=== PATIENT | male | born 1950 | race Caucasian/White ===

== ENCOUNTER 2017-02-07 19:14 | Inpatient (IN) | payer MEDICARE ==
[~2017-02-07] VITALS: Ht 165.1 cm; Wt 62.1 kg
[~2017-02-07 19:14] MED LIST: NORCO 5/325 MG1 TAB PO; PAXIL20 MG PO
[2017-02-07 19:19] VITALS: BP 113/76
--- NOTE | 2017-02-07 19:40 | NUR ---
BIBA TO ER BED 4
[2017-02-07] MEDS ORDERED: ONDANSETRON 4 MG ODT PO ONE (20:05)
--- NOTE | 2017-02-07 20:18 | NUR ---
66Y/F PT. BIBA TO ED WITH C/O NAUSEA, VOMITING, DIARRHEA, BODYACHES,CHILLS, FOR 3 DAYS. HX. DEPRESSION. AAO X4, AMBULATORY WITH STEADY GAIT. RESPIRATIONS ROOM AIR, EVEN AND UNLABORED. SKIN WARM AND DRY. ACTIVE BS X4, ABDOMEN SOFT NON TENDER, C/O PAIN 5/10. VSS, ER MD MADE AWARE OF PT. STATUS.
--- NOTE | 2017-02-07 20:30 | NUR ---
Patient being evaluated by physician at bedside.
[2017-02-07] MEDS ORDERED: NACL 0.9% 1,000 ML IV ONE (21:10)
--- NOTE | 2017-02-07 21:30 | NUR ---
Patient appears to be resting comfortably in bed. Vital Signs within normal limits. Respirations even and unlabored.
[2017-02-07] MEDS ORDERED: ONDANSETRON 4 MG/2 ML VIAL IVP ONE (21:40)
[2017-02-07] MEDS ORDERED: DESYREL50 MG PO (22:04)
--- NOTE | 2017-02-07 22:25 | NUR ---
Patient will be admitted to care of . Admited to TELE. Will go to room 112A. Belongings list completed. Report to COLBY NÚÑEZ.
[2017-02-07 22:56] VITALS: BP 148/98
[2017-02-07] MEDS ORDERED: DOCUSATE SODIUM 100 MG GELCAP PO PRN (23:00)
[2017-02-07] MEDS ORDERED: ACETAMINOPHEN 325 MG TAB PO PRN (23:00)
[2017-02-07] MEDS ORDERED: HYDROcodone/APAP 7.5/325 MG 1 TAB PO PRN (23:00)
--- NOTE | 2017-02-07 23:00 | NUR ---
RECEIVED REPORT FROM ED RN FOR CONTINUITY OF CARE. 66 Y.O. MALE BROUGHT TO UNIT WITH DX: ILEUS, PATIENT IS ALERT AND ORIENTED X4, DISCUSSED PLAN OF CARE WITH PATIENT, VERBALIZED UNDERSTANDING. ORIENTED PATIENT TO ROOM AND COLLECTED MRSA SWAB. INFORMED PATIENT OF NEED FOR URINE AND PLACED SAMPLE CUP AT BEDSIDE. SHIFT ASSESSMENT DONE, VITAL SIGNS TAKEN, STABLE AT THIS TIME. NO RESPIRATORY DISTRESS NOTED ON ROOM AIR. PATIENT DENIES PAIN AT THIS TIME. IV PATENT AND INFUSING FLUIDS WELL. SKIN INTACT. SAFETY PRECAUTIONS ENFORCED, CALL LIGHT WITHIN REACH, WILL CONTINUE TO MONITOR.
[2017-02-07] MEDS: NACL 0.9% 1,000 ML IV SCH (23:38)
[2017-02-07] MEDS: ONDANSETRON 4 MG/2 ML VIAL IM/IVP PRN (23:39)
--- NOTE | 2017-02-07 23:39 | NUR ---
PATIENT C/O NAUSEA, ADMINISTERED MEDICATION PER MD ORDER. DR. THOMAS IN TO SEE PATIENT, WILL FOLLOW OUT ORDERS GIVEN.
[2017-02-08] VITALS: BP 121/76
--- NOTE | 2017-02-08 00:30 | NUR ---
INSERTED NG TUBE 14 SINHALA TO RIGHT NARE, PATIENT TOLERATED WELL. PLACED PATIENT ON NPO. CALLED CT FOR CXR.
[2017-02-08] MEDS ORDERED: MAG SULF 2000 MG/WATER PREMIX 50 ML IV SCH (01:40)
--- NOTE | 2017-02-08 02:00 | NUR ---
PATIENT HAD EPISODE OF DIARRHEA, STATES "IT IS GETTING BETTER BUT STILL LIQUID", RETURNED TO BED AND MADE COMFORTABLE. CALL LIGHT WITHIN REACH, WILL CONTINUE TO MONITOR.
[2017-02-08 04:00] VITALS: BP 139/85
--- NOTE | 2017-02-08 04:07 | NUR ---
VITAL SIGNS STABLE, PATIENT RESTING IN BED, NEW IV LINE INSERTION TO LT FA FOR CT WITH CONTRAST. CALL LIGHT WITHIN REACH, WILL CONTINUE TO MONITOR.
--- NOTE | 2017-02-08 04:40 | NUR ---
AMY FROM CT BROUGHT CONTRAST TO ADMINISTER VIA NG TUBE. PATIENT TOLERATING WELL.
--- NOTE | 2017-02-08 06:50 | NUR ---
NG CONTRAST COMPLETED AND PATIENT LEFT TO CT VIA WHEELCHAIR IN STABLE CONDITION.
--- NOTE | 2017-02-08 07:20 | NUR ---
PATIENT RETURNED FROM CT IN STABLE CONDITION, ENDORSED PATIENT TO DAY RN FOR CONTINUITY OF CARE.
--- NOTE | 2017-02-08 07:21 | NUR ---
RECEIVED REPORT FROM ACID BLEACHER RN. PT AWAY AT CT AT THIS TIME.
--- NOTE | 2017-02-08 07:30 | NUR ---
PT BACK FROM CT. PATIENT AWAKE AND ALERT, NO SIGNS OF ACUTE DISTRESS. BOWEL SOUNDS ACTIVE IN ALL 4 QUADRANTS. BOWEL AND BLADDER CONTINENCE. SKIN INTACT. PATIENT DENIES PAIN AT THIS TIME. NG TUBE IN RIGHT NARES, NO ORDERS FOR SUCTION AT THIS TIME. AMBULATORY WITH BRP. RE-ORIENTED TO HOSPITAL AND TO UNIT, PATIENT VERBALIZES UNDERSTANDING. BED IN LOW POSITION WITH BILATERAL HALF SIDE RAILS UP, CALL LIGHT WITHIN REACH. WILL CONTINUE TO MONITOR. Addendum: 02/08/17 at 0938 by Any Valdes RN PT BACK FROM CT. PATIENT AWAKE AND ALERT, NO SIGNS OF ACUTE DISTRESS. BOWEL SOUNDS ACTIVE IN ALL 4 QUADRANTS. BOWEL AND BLADDER CONTINENCE. SKIN INTACT. PATIENT DENIES PAIN AT THIS TIME. NG TUBE IN RIGHT NARES, NO ORDERS FOR SUCTION AT THIS TIME. AMBULATORY WITH BRP. IV'S ARE PATENT AND ASYMPTOMATIC. RE-ORIENTED TO HOSPITAL AND TO UNIT, PATIENT VERBALIZES UNDERSTANDING. BED IN LOW POSITION WITH BILATERAL HALF SIDE RAILS UP, CALL LIGHT WITHIN REACH. WILL CONTINUE TO MONITOR.
[2017-02-08 08:00] VITALS: BP 129/80
[2017-02-08] MEDS: ONDANSETRON 4 MG/2 ML VIAL IM/IVP PRN (08:06)
--- NOTE | 2017-02-08 09:01 | NUR ---
PATIENT HAS BEEN SCREENED AND CATEGORIZED MODERATE NUTRITION RISK. PATIENT WILL BE SEEN WITHIN 3-5 DAYS OF ADMISSION. 02/10/17-02/12/[address]
--- NOTE | 2017-02-08 09:03 | NUR ---
RECEIVED NEW ORDER TO TRANSFER TO MED SURG, NOTED, WILL CARRY OUT.
[2017-02-08] MEDS: NACL 0.9% 1,000 ML IV SCH ×2 (10:54→18:41)
--- NOTE | 2017-02-08 11:15 | NUR ---
PT RESTING COMFORTABLY IN BED, NO SIGNS OF ACUTE DISTRESS. BED IN LOW POSITION WITH BILATERAL HALF SIDE RAILS UP, CALL LIGHT WITHIN REACH. WILL CONTINUE TO MONITOR.
--- NOTE | 2017-02-08 13:15 | NUR ---
PT RESTING IN BED, COMPLAINT OF NAUSEA, CLAIMING ZOFRAN IS NOT WORKING. WILL CHECK WITH DR COSTA FOR AN ALTERNATE ANTI NAUSEA MEDICATION.
--- NOTE | 2017-02-08 13:40 | NUR ---
RECEIVED NEW ORDERS FOR PHENERGAN PRN AND AM LABS FORM 02/09/17, NOTED, WILL CARRY OUT.
--- NOTE | 2017-02-08 13:48 | NUR ---
RECEIVED NEW ORDERS FOR C-DIFF COLLECTION, NOTED, WILL CARRY OUT.
[2017-02-08] MEDS ORDERED: MAG SULF 2000 MG/WATER PREMIX 50 ML IV ONE (13:55)
--- NOTE | 2017-02-08 13:57 | NUR ---
RECEIVED NEW ORDER FOR MAG RIDER FROM DR COSTA, NOTED, WILL CARRY OUT.
--- NOTE | 2017-02-08 14:58 | NUR ---
ORDER FOR MAG RIDER CANCELLED, ALREADY GIVEN LAST NIGHT PER DR COSTA. NOTED.
[2017-02-08] MEDS: PROMETHAZINE 25 MG/ML VIAL IM PRN ×2 (15:05→21:35)
--- NOTE | 2017-02-08 15:45 | NUR ---
COLLECTED STOOL SPECIMEN FOR C-DIFF AND TOOK TO LAB, WILL CONTINUE TO MONITOR.
[2017-02-08 16:00] VITALS: BP 134/83
--- NOTE | 2017-02-08 17:45 | NUR ---
PT RESTING IN BED, NO SIGNS OF ACUTE DISTRESS. BED IN LOW POSITION WITH BILATERAL HALF SIDE RAILS UP, CALL LIGHT WITHIN REACH. WILL CONTINUE TO MONITOR.
--- NOTE | 2017-02-08 19:15 | NUR ---
PT AWAKE AND ALERT, NO SIGNS OF ACUTE DISTRESS. ENDORSED TO LADLE MECHANIC NURSE FOR CONTINUITY OF CARE.
--- NOTE | 2017-02-08 19:30 | NUR ---
RECEIVED REPORT FROM AM NURSE. PT RESTING IN BED, AOX4, ABLE TO VERBALIZE NEEDS. PT DENIES CHEST PAIN, SOB OR S/S OF ACUTE DISTRESS. PT C/O NAUSEA, WILL MEDICATE ORDERED, EMESIS BAG AT BEDSIDE. NG TUBE NOTED TO RIGHT NARES, COFFEE GROUND FLUID NOTED ON BED, LEAKING FROM NG TUBE. NG TUBE SECURED, WILL CLEAN PT AND BED LINENS. PROXIMAL LEFT FOREARM IV ACCESS SEEN LOOSE, IV CATH OUT OF PLACE. IV ACCESS REMOVED, CANNULA INTACT, PT TOLERATED WELL. DISTAL LEFT FOREARM IV ACCESS ASYMPTOMATIC, PATENT AND INTACT. IVF INFUSING WELL. DISCUSSED AND REVIEWED PLAN OF CARE WITH PT. PT STATED "OK" ALL NEEDS MET. SAFETY MEASURES ENSURED. CALL LIGHT WITHIN REACH. WILL CONTINUE TO MONITOR.
[2017-02-08 20:00] VITALS: BP 147/93
--- NOTE | 2017-02-08 20:52 | NUR ---
CALLED DR LOVETT, CLARIFIED ORDER TO D/C NG TUBE. MADE AWARE OF COFFEE GROUND EMESIS NOTED THAT LEAKED OUT FROM NG TUBE. STATED THERE IS NO NEED FOR SUCTION AND OK TO D/C NG TUBE. NG TUBE D/C'ED FROM PT. PT TOLERATED WELL.
--- NOTE | 2017-02-08 21:39 | NUR ---
ASSISTED PT TO RESTROOM, PT ABLE TO AMBULATE TO RESTROOM WITH STANDBY ASSIST. PT BACK TO BED. PT C/O NAUSEA, PT STATED ZOFRAN DOES NOT WORK FOR HIM, REQUESTED PHENERGAN IM PRN. ADMINISTERED PHENERGAN IM PRN WITH EDUCATION ORDERED. PT VERBALIZED UNDERSTANDING, TOLERATED MED WELL. ALL NEEDS MET. SAFETY MEASURES ENSURED. CALL LIGHT WITHIN REACH.
[2017-02-09] VITALS (7 sets, daily range): BP systolic 112–139; BP diastolic 80–94
--- NOTE | 2017-02-09 00:15 | NUR ---
CALLED DR LOVETT, MADE MD AWARE OF PT'S HR RANGING FROM 116-122. NO S/S OF ACUTE DISTRESS, PT STATED FEELING NAUSEA AND ANXIETY. PT STATED HE HASN'T BEEN ABLE TO TAKE HIS HOME MEDS PAXIL AND TRAZODONE. MD STATED HE CANNOT TAKE HIS HOME MEDS AT THIS TIME DUE TO BEING NPO. MD TO ORDER ATIVAN IV PRN, WILL MEDICATE PT ORDERED.
[2017-02-09] MEDS: LORazepam 2 MG/ML VIAL IM/IVP PRN ×2 (00:39→20:49)
[2017-02-09] MEDS ORDERED: METOPROLOL 50 MG TAB PO SCH (01:25)
--- NOTE | 2017-02-09 01:30 | NUR ---
CALLED DR LOVETT, MADE MD AWARE OF HR STILL AROUND 122-126 AT THIS TIME AFTER ATIVAN IV PRN. PT IS SLEEPING AT THIS TIME. RECEIVED ORDERS TO PUT PT ON CARDIAC MONITORING AND MD TO ORDER BETA CESAR. ORDERS PENDING, WILL CARRY OUT.
[2017-02-09] MEDS ORDERED: LABETALOL 100 MG/20 ML VIAL IV SCH ×3 (01:35)
[2017-02-09] MEDS ORDERED: METOPROLOL 25 MG TAB PO SCH (02:05)
--- NOTE | 2017-02-09 02:20 | NUR ---
PT BP 123/83, HR 113. PT SLEEPING BUT AROUSABLE. ADMINISTERED ONE TIME ORDER OF METOPROLOL 25MG PO ORDERED. WILL CONTINUE TO MONITOR.
--- NOTE | 2017-02-09 04:00 | NUR ---
PT SLEEPING COMFORTABLY, AROUSABLE TO NAME. NO S/S OF ACUTE DISTRESS. ALL NEEDS MET. SAFETY MEASURES ENSURED. CALL LIGHT WITHIN REACH. WILL CONTINUE TO MONITOR.
[2017-02-09] MEDS: NACL 0.9% 1,000 ML IV SCH ×3 (05:36→23:39)
--- NOTE | 2017-02-09 06:15 | NUR ---
ASSISTED PT TO RESTROOM, PT ABLE TO AMBULATE TO RESTROOM WITH ONE PERSON MINIMAL ASSIST. PT HAD LARGE DARK RED LIQUID STOOL. PT CLEANED, HELPED BACK TO BED. DR COSTA MADE AWARE.
--- NOTE | 2017-02-09 07:14 | NUR ---
ENDORSED PLAN OF CARE TO AM NURSE. CONDITION STABLE.
--- NOTE | 2017-02-09 07:15 | NUR ---
RECEIVED BEDSIDE REPORT FROM LOAN ASSOCIATE NURSE. PATIENT AWAKE AND ALERT, NO SIGNS OF ACUTE DISTRESS. PT ON ROOM AIR. BOWEL SOUNDS ACTIVE IN ALL 4 QUADRANTS, BOWEL AND BLADDER CONTINENCE. SKIN INTACT. AMBULATORY WITH BRP. PATIENT DENIES PAIN AT THIS TIME. IV PATENT AND ASYMPTOMATIC. RE-ORIENTED TO HOSPITAL AND TO UNIT, PT VERBALIZED UNDERSTANDING. BED IN LOW POSITION WITH BILATERAL HALF SIDE RAILS UP, CALL LIGHT WITHIN REACH. WILL CONTINUE TO MONITOR.
--- NOTE | 2017-02-09 07:15 | NUR ---
PT AWAKE AND ALERT, NO SIGNS OF ACUTE DISTRESS. ENDORSED TO CANDY POLISHER NURSE FOR CONTINUITY OF CARE. Addendum: 02/09/17 at 1926 by Any Valdes RN DOCUMENTED UNDER WRONG TIME, SUPPOSED TO BE 1914
--- NOTE | 2017-02-09 08:34 | NUR ---
FAXED INITIAL REVIEW TO [facility] [phone] PHONE OPAL [phone]
--- NOTE | 2017-02-09 09:30 | NUR ---
PT SLEEPING, NO SIGNS OF ACUTE DISTRESS. BED IN LOW POSITION WITH BILATERAL HALF SIDE RAILS UP, BED ALARM ON, CALL LIGHT WITHIN REACH. WILL CONTINUE TO MONITOR.
[2017-02-09] MEDS ORDERED: SODIUM POLYSTYRENE 15 GM/60 ML UDBTL PR SCH (09:45)
--- NOTE | 2017-02-09 11:44 | NUR ---
RECEIVED NEW ORDER FOR AM LABS FOR 02/10/17, NOTED, WILL CARRY OUT.
--- NOTE | 2017-02-09 11:45 | NUR ---
PT RESTING COMFORTABLY IN BED, NO SIGNS OF ACUTE DISTRESS. SAFETY CHECKS IN PLACE. WILL CONTINUE TO MONITOR.
--- NOTE | 2017-02-09 12:56 | NUR ---
RECEIVED NEW ORDERS, NOTED, WILL CARRY OUT.
--- NOTE | 2017-02-09 13:15 | NUR ---
PT RESTING COMFORTABLY IN BED, NO SIGNS OF ACUTE DISTRESS. BED IN LOW POSITION WITH BILATERAL HALF SIDE RAILS UP, BED ALARM ON, CALL LIGHT WITHIN REACH. WILL CONTINUE TO MONITOR.
--- NOTE | 2017-02-09 15:30 | NUR ---
PT RESTING COMFORTABLY IN BED, NO SIGNS OF ACUTE DISTRESS. NO COMPLAINT OF NAUSEA OR PAIN. BED IN LOW POSITION WITH BILATERAL HALF SIDE RAILS UP, BED ALARM ON, CALL LIGHT WITHIN REACH. WILL CONTINUE TO MONITOR.
--- NOTE | 2017-02-09 19:15 | NUR ---
PT AWAKE AND ALERT, NO SIGNS OF ACUTE DISTRESS. ENDORSED TO PARTY PLAN SELLING DISTRIBUTOR NURSE FOR CONTINUITY OF CARE.
--- NOTE | 2017-02-09 19:20 | NUR ---
RECEIVED PT AWAKE ON BED, DENIES ANY PAIN, NO SOB NOTED, VITAL SIGNS STABLE, PT HAD BLACK WATERY STOOL MODERATE AMOUNT, SPECIMEN SENT TO LAB FOR STOOL OB, PLAN OF CARE DISCUSS, SAFETY MEASURE IN PLACE, CALL LIGHT WITHIN REACH.
--- NOTE | 2017-02-09 20:58 | NUR ---
PT ANXIOUS, ATIVAN IVP GIVEN PRN, SIDE RAILS UP AND BED ALARM ON, ALL NEEDS ATTENDED.
[2017-02-09] MEDS: traZODone 50 MG TAB PO SCH (21:43)
--- NOTE | 2017-02-09 22:38 | NUR ---
BED ALARM TRIGGERED, PT KEEPS ON STANDING UP TO USE URINAL AND BEDSIDE COMMODE, PT UNSTEADY ON HIS FEET, ST ON TELE WHEN MOVING, ASYMPTOMATIC, DENIES ANY PAIN, TRANSFERRED TO ROOM 122B WHICH CLOSER TO NURSE STATION, MONITORED CLOSELY.
--- NOTE | 2017-02-09 23:28 | NUR ---
PT SLEEPING, EASILY AROUSABLE, DENIES ANY PAIN OR SOB, OCCASIONAL DRY COUGH NOTED, VITAL SIGNS TAKEN:BP-101/58, RR-24, HR-125, SAT-93% ON O2 AT 2L/NC, DR LOVETT MADE AWARE.
--- NOTE | 2017-02-09 23:42 | NUR ---
DR LOVETT CAME IN AND TALKED TO PT, WITH NEW ORDERS, IVF INCREASED TO 400ML/H, MONITORED CLOSELY.
[2017-02-09] MEDS: CALCIUM CARB/VIT-D 500 MG/200 IU 1 TAB PO SCH (23:50)
[2017-02-10] VITALS: BP 101/58
--- NOTE | 2017-02-10 02:00 | NUR ---
ROUNDED ON PT, SLEEPING, NO SIGNS OF DISTRESS, MONITORED CLOSELY.
[2017-02-10] MEDS: NACL 0.9% 1,000 ML IV SCH ×4 (02:12→17:01)
[2017-02-10 04:00] VITALS: BP 109/66
--- NOTE | 2017-02-10 04:50 | NUR ---
PT VOIDED FREELY PER URINAL WITH 350ML YELLOW URINE, AMBULATED TO BR WITH ASSIST, WATERY BLACK STOOL MODERATE AMOUNT NOTED, ASSISTED BACK TO BED, NO SOB NOTED, DENIES ANY PAIN, CONTINUE ON IVF WITH NS @ 400ML/H ORDERED, REPORT GIVEN TO COLBY GASTELUM AT BEDSIDE FOR CONTINUITY OF CARE.
--- NOTE | 2017-02-10 04:51 | NUR ---
RECEIVED REPORT FROM NIGHT NURSE FOR CONTINUATION OF CARE. PT RESTING IN BED, ABLE TO VERBALIZE NEEDS, PT INSTRUCTED TO USE CALL LIGHT WHEN NEEDING ASSISTANCE OUT OF BED. PT DENIES CHEST PAIN, SOB OR S/S OF ACUTE DISTRESS, STATING "I FEEL BETTER." PT DENIES NAUSEA AT THIS TIME. IV ACCESS ASYMPTOMATIC, PATENT AND INTACT. IVF INFUSING WELL. DISCUSSED AND REVIEWED PLAN OF CARE WITH PT. PT STATED "OK" ALL NEEDS MET. BED ALARM AND SAFETY MEASURES ENSURED. CALL LIGHT WITHIN REACH. WILL CONTINUE TO MONITOR.
--- NOTE | 2017-02-10 07:15 | NUR ---
ENDORSED PLAN OF CARE TO AM NURSE. CONDITION STABLE.
--- NOTE | 2017-02-10 07:20 | NUR ---
RECEIVED BEDSIDE REPORT FROM FREIGHT BOOKER RN. PT AWAKE AND ALERT, NO SIGNS OF ACUTE DISTRESS. BOWEL SOUNDS ACTIVE IN ALL 4 QUADRANTS. BOWEL AND BLADDER CONTINENCE. AMBULATORY WITH BRP. SKIN INTACT. PATIENT DENIES PAIN AT THIS TIME. IV PATENT AND ASYMPTOMATIC. PT ON ROOM AIR. RE-ORIENTED PATIENT TO HOSPITAL AND TO UNIT, PT VERBALIZES UNDERSTANDING. BED IN LOW POSITION WITH BILATERAL HALF SIDE RAILS UP, BED ALARM ON, CALL LIGHT WITHIN REACH. WILL CONTINUE TO MONITOR.
[2017-02-10 08:00] VITALS: BP 117/69
[2017-02-10] MEDS: CALCIUM CARB/VIT-D 500 MG/200 IU 1 TAB PO SCH (08:24)
[2017-02-10] MEDS: PARoxetine 20 MG TAB PO SCH (08:24)
[2017-02-10] MEDS ORDERED: FUROSEMIDE 20 MG/2 ML VIAL IVP SCH (08:50)
--- NOTE | 2017-02-10 09:20 | NUR ---
PT ASKING ABOUT POSSIBLE DISCHARGE TODAY, SPOKE WITH DR COSTA, WAITING FOR CLEARANCE FROM DR MARTEL. INFORMED PATIENT, VERBALIZED UNDERSTANDING. FAMILY AT BEDSIDE. NO SIGNS OF ACUTE DISTRESS. BED IN LOW POSITION WITH BILATERAL HALF SIDE RAILS UP, CALL LIGHT WITHIN REACH. WILL CONTINUE TO MONITOR.
--- NOTE | 2017-02-10 10:56 | NUR ---
CM NOTE CONCURRENT REVIEW FAXED TO [facility] / FAX# [phone], ATTN: OPAL #[phone]
--- NOTE | 2017-02-10 11:30 | NUR ---
PT SLEEPING, NO SIGNS OF ACUTE DISTRESS. BED IN LOW POSITION WITH BILATERAL HALF SIDE RAILS UP, CALL LIGHT WITHIN REACH. WILL CONTINUE TO MONITOR.
[2017-02-10 12:00] VITALS: BP 140/69
[2017-02-10] MEDS ORDERED: MAG SULF 2000 MG/WATER PREMIX 50 ML IV ONE (14:30)
--- NOTE | 2017-02-10 14:39 | NUR ---
RECEIVED NEW ORDER FOR MAG YO FROM DR COSTA. MAG 1.6. NOTED, WILL CARRY OUT.
[2017-02-10] MEDS: MORPHINE SULFATE 2 MG/ML SYR IVP PRN (15:23)
--- NOTE | 2017-02-10 15:23 | NUR ---
PATIENT COMPLAINING OF PAIN 7/10 IN CENTER OF ABDOMEN. PULSE IS 120. ADMINISTERED MORPHINE IVP ORDERED PRN AND INFORMED DR COSTA. NO CHANGES IN ORDERS AT THIS TIME. WILL CONTINUE TO MONITOR.
--- NOTE | 2017-02-10 15:52 | NUR ---
PER DR COSTA, STOPPING IV MORPHINE AT THIS TIME, FOR FURTHER PAIN ADMINISTER ORAL PAIN MEDICATION FIRST, IF PAIN DOESN'T SUBSIDE LET HIM KNOW. NOTED, WILL CARRY OUT.
[2017-02-10 16:00] VITALS: BP 145/80
[2017-02-10] MEDS ORDERED: NOVAPLUS ONDA2 MG/M1 IM/IVP (16:28)
[2017-02-10] MEDS ORDERED: CALCIUM/VITAMIN1 TA3 PO (16:28)
[2017-02-10] MEDS ORDERED: NORCO 5/325 MG1 TAB PO (16:28)
[2017-02-10] MEDS ORDERED: ACETAMINOPHEN325 M2 PO (16:28)
--- NOTE | 2017-02-10 16:38 | NUR ---
DR MARTEL AT PATIENT BEDSIDE WITH DR COSTA. WILL DO EGD AND COLONOSCOPY TOMORROW. DR MARTEL EXPLAINED PROCEDURE TO PATIENT, PATIENT VERBALIZED UNDERSTANDING.
--- NOTE | 2017-02-10 18:15 | NUR ---
EDUCATED PATIENT ON ADMINISTRATION OF GOLYTELY, PT VERBALIZED UNDERSTANDING. PT RESTING COMFORTABLY IN BED, NO SIGNS OF ACUTE DISTRESS. BED IN LOW POSITION WITH BILATERAL HALF SIDE RAILS UP, CALL LIGHT WITHIN REACH. WILL CONTINUE TO MONITOR.
[2017-02-10] MEDS ORDERED: BOWEL EVACUANT DRINK 4,000 ML PDS PO SCH (19:00)
--- NOTE | 2017-02-10 19:16 | NUR ---
PT AWAKE AND ALERT, NO SIGNS OF ACUTE DISTRESS. ENDORSED TO COLBY NÚÑEZ FOR CONTINUITY OF CARE.
--- NOTE | 2017-02-10 19:17 | NUR ---
RECEIVED REPORT FROM DAY RN FOR CONTINUITY OF CARE. PATIENT IS ALERT AND ORIENTED X4, DISCUSSED PLAN OF CARE WITH PATIENT, VERBALIZED UNDERSTANDING. SHIFT ASSESSMENT DONE, VITAL SIGNS TAKEN, STABLE AT THIS TIME. NO RESPIRATORY DISTRESS NOTED ON ROOM AIR. PATIENT DENIES PAIN AT THIS TIME, C/O SLIGHT ABDOMINAL CRAMPING FROM BOWEL PREP. IV TO LT FA PATENT AND INFUSING FLUIDS WELL. NPO AT MIDNIGHT ENFORCED, VERBALIZED UNDERSTANDING. SAFETY PRECAUTIONS ENFORCED, CALL LIGHT WITHIN REACH. FAMILY MEMBER AT BEDSIDE, WILL CONTINUE TO MONITOR.
[2017-02-10 20:00] VITALS: BP 118/70
[2017-02-10] MEDS: LACTULOSE 20 GM/30 ML UDC PO SCH (20:35)
[2017-02-10] MEDS: traZODone 50 MG TAB PO SCH (20:36)
--- NOTE | 2017-02-10 20:36 | NUR ---
DUE MEDICATIONS ADMINISTERED, TOLERATED WELL AND VERBALIZED UNDERSTANDING OF USE. PATIENT STATES HE IS HAVING LIQUID BOWEL MOVEMENTS FREQUENTLY, INFORMED HIM THAT IS FROM BOWEL PREP AND TO STAY HYDRATED FOLLOWING CLEAR LIQUID DIET UNTIL MIDNIGHT, VERBALIZED UNDERSTANDING. CALL LIGHT WITHIN REACH, WILL CONTINUE TO MONITOR.
--- NOTE | 2017-02-10 22:19 | NUR ---
PATIENT USING BEDSIDE COMMODE AT THIS TIME, WILL CONTINUE TO MONITOR.
[2017-02-11] VITALS (7 sets, daily range): BP systolic 62–140; BP diastolic 47–93
--- NOTE | 2017-02-11 00:20 | NUR ---
PATIENT USED BEDSIDE COMMODE, MODERATE SIZED LIQUID BM NOTED, DARK YELLOW. VITAL SIGNS STABLE. PATIENT NOW RESTING IN BED, NO DISTRESS OR DISCOMFORT NOTED. CALL LIGHT WITHIN REACH.
--- NOTE | 2017-02-11 02:14 | NUR ---
PATIENT RESTING IN BED, NO DISTRESS NOTED. CALL LIGHT WITHIN REACH, WILL CONTINUE TO MONITOR.
--- NOTE | 2017-02-11 04:05 | NUR ---
VITAL SIGNS STABLE, PATIENT RESTING IN BED AT THIS TIME, NO DISTRESS NOTED. EMPTIED BEDSIDE COMMODE, DARK YELLOW LIQUID STOOL NOTED, WITH PARTICLES. WILL CONTINUE TO MONITOR.
--- NOTE | 2017-02-11 06:00 | NUR ---
PATIENT SLEEPING AT THIS TIME, NO DISTRESS NOTED. CALL LIGHT WITHIN REACH.
--- NOTE | 2017-02-11 07:20 | NUR ---
RECEIVED REPORT BY NIYA AT PATIENTS BEDSIDE. PATIENT HAD NO SIGNS AND SYMPTOMS OF DISTRESS AT THIS TIME. PT IS ALERT AND ORIENTED X4. CALL LIGHT IS WITHIN REACH. BEDSIDE COMMODE AVAILABLE. PATIENT ABLE TO AMBULATE.
--- NOTE | 2017-02-11 07:20 | NUR ---
ENDORSED PATIENT TO DAY RN FOR CONTINUITY OF CARE, PATIENT IS IN STABLE CONDITION.
[2017-02-11] MEDS ORDERED: KCL 20 MEQ/WATER INJ PREMIX 200 ML IV ONE (08:10)
[2017-02-11] MEDS: METOCLOPRAMIDE 10 MG/2 ML INJ VIAL IVP SCH ×3 (08:45→18:40)
[2017-02-11] MEDS: CALCIUM CARB/VIT-D 500 MG/200 IU 1 TAB PO SCH (08:50)
[2017-02-11] MEDS: LACTULOSE 20 GM/30 ML UDC PO SCH (08:50)
[2017-02-11] MEDS: PARoxetine 20 MG TAB PO SCH (08:51)
[2017-02-11] MEDS: NACL 0.9% 1,000 ML IV SCH ×2 (09:41→16:01)
--- NOTE | 2017-02-11 10:00 | NUR ---
PATIENT HAVING FREQUENT WATERY LOOSE STOOLS, YELLOW/BROWN IN COLOR. DR. MARTEL TO TAKE PATIENT FOR PROCEDURE IN AFTERNOON.
--- NOTE | 2017-02-11 11:14 | NUR ---
CM NOTE CONCURRENT REVIEW FAXED TO [facility] / FAX# [phone], ATTN: OPAL #[phone]
--- NOTE | 2017-02-11 11:40 | NUR ---
PATIENT TOLERATED FIRST BAG OF IVPB POTASSIUM. SECOND BAG STARTED.
[2017-02-11] MEDS ORDERED: fentaNYL 0.05 MG/ML VIAL ONE (11:49)
[2017-02-11] MEDS ORDERED: diphenhydrAMINE 50 MG/ML VIAL ONE (11:50)
[2017-02-11] MEDS ORDERED: MIDAZOLAM 2 MG/2 ML VIAL ONE (11:50)
--- NOTE | 2017-02-11 11:50 | NUR ---
PATIENT BEING TAKEN OFF UNIT FOR EGD/COLONOSCOPY PROCEDURE. NO S/S OF ACUTE DISTRESS NOTED.
--- NOTE | 2017-02-11 13:10 | NUR ---
PATIENT BROUGHT BACK FROM SURGICAL PROCEDURE. PATIENT C/O ABDOMINAL DISCOMFORT. DR. MARTEL AWARE. NO NEW ORDERS AT THIS TIME, WILL CONTINUE TO MONITOR.
[2017-02-11] MEDS ORDERED: fentaNYL 0.05 MG/ML VIAL IVP ONE (13:30)
[2017-02-11] MEDS ORDERED: MIDAZOLAM 2 MG/2 ML VIAL IVP ONE (13:30)
[2017-02-11] MEDS ORDERED: KCL 20 MEQ/WATER INJ PREMIX 100 ML IV ONE (15:30)
[2017-02-11] MEDS ORDERED: KCL 20 MEQ/WATER INJ PREMIX 200 ML IV SCH (16:00)
[2017-02-11] MEDS ORDERED: ONDANSETRON 4 MG ODT SL PRN (16:15)
[2017-02-11] MEDS ORDERED: METOCLOPRAMIDE 10 MG/2 ML INJ VIAL IVP PRN (16:15)
--- NOTE | 2017-02-11 17:00 | NUR ---
PT HAVING ABDOMINAL BLOATING. PATIENT C/O PRESSURE. DR. MARTEL AWARE. NEW ORDERS RECEIVED, WILL MEDICATE ORDERED.
[2017-02-11] MEDS: MORPHINE SULFATE 2 MG/ML SYR IVP PRN (17:13)
[2017-02-11] MEDS ORDERED: cefTRIAXone 1,000 MG VIAL ONE (17:16)
[2017-02-11] MEDS ORDERED: BISACODYL 10 MG SUPP RC SCH (17:45)
--- NOTE | 2017-02-11 18:09 | NUR ---
PATIENT GIVEN SUPPOSITORY AT THIS TIME. TOLERATED WELL, RESTING IN BED. WILL CONTINUE TO MONITOR.
[2017-02-11] MEDS ORDERED: SIMETHICONE 80 MG TAB.CHEW PO PRN (19:25)
--- NOTE | 2017-02-11 19:30 | NUR ---
FLEXISEAL INSERTED ORDERED AT PT BEDSIDE. NO S/S OF ACUTE TRAUMA NOTED. PATIENT DENIES ANY RELIEF. DR. LOVETT MADE AWARE OF ABDOMINAL DISTENTION AND LACTIC ACID 5.8. TO PLACE ORDERS
--- NOTE | 2017-02-11 19:35 | NUR ---
ENDORSED PLAN OF CARE TO NIGHT NURSE AT PT BEDSIDE. DR. LOVETT AWARE OF DISTENDED ABD. AWAITING KUB RESULTS.
--- NOTE | 2017-02-11 19:38 | NUR ---
RECEIVED REPORTS FROM DAY RN. PATIENT RESTING IN BED, AWAKE ALERT ORIENTED X 3. IV PATIENT AND INTACT, INFUSING POTASSIUM CHLORIDE 20 EMQ AT 50ML/HR. FLEXI-SEAL TUBE IN HIS RECTUM. PATIENT'S ABDOMEN IS DISTENDED. VITAL SIGNS READ T 97.2, BP 140/93, HR 79, O2SAT 94%, RR 25. PATIENT STATED," I CAN'T PASS GAS, IT HURTS. IT HURTS" CALL LIGHT WITHIN REACH, SAFETY MEASURE ENSURED, WILL CONTINUE TO MONITOR.
--- NOTE | 2017-02-11 20:20 | NUR ---
PATIENT'S SON IN THE ROOM, STATED," MY DAD IS IN PAIN, HE CAN'T PASS GAS, HE FEELS BLOATING." INFORMED PATIENT'S SON THAT THE DAY SHIFT NURSE ALREADY GAVE PATIENT SIMETHICONE FOR GAS PAIN.
[2017-02-11] MEDS: traZODone 50 MG TAB PO SCH (20:26)
--- NOTE | 2017-02-11 20:41 | NUR ---
PM MEDICATIONS GIVEN, PATIENT TOLERATED WELL. NOTED PATIENT BELCH X3.
[2017-02-11] MEDS ORDERED: metroNIDAZOLE 500 MG/NS PREMIX 100 ML IV SCH (21:00)
[2017-02-11] MEDS ORDERED: PANTOPRAZOLE 40 MG INJ VIAL IVP SCH (21:00)
--- NOTE | 2017-02-11 21:15 | NUR ---
PATIENT STATED," I CAN'T BREATH, I CAN'T BREATH." PATIENT LYING IN BED ON HIS RT SIDE, BP 131/71, HR 105, 02SAT 85%, RR 21, CALLED RT TO ASSESS THE PATIENT.
--- NOTE | 2017-02-11 21:20 | NUR ---
PATIENT PALE AND STILL STATED, " I CAN'T BREATH." PATIENT ON NC O2 2L. MADE CHARGE NURSE AWARE, RT WAS IN THE ROOM ASSESSED THE PATIENT. PATIENT'S SON AT BEDSIDE.
--- NOTE | 2017-02-11 21:25 | NUR ---
CALLED DR. LOVETT, MADE HIM AWARE OF PATIENT'S CONDITION. DR. LOVETT STATED," PATIENT CAN'T BREATH BECAUSE HIS ABDOMEN IS DISTENDED, WHICH AFFECTS THE DIAPHRAGM." EXPLAIN WHAT DR. LOVETT SAID TO THE PATIENT'S SON.
--- NOTE | 2017-02-11 21:31 | NUR ---
FIRST RAPID RESPONSE CALLED, ER TEAM CAME AND ASSESSED PATIENT. RT AT BEDSIDE. PATIENT WAS ON BIPAP MACHINE, BLOOD SUGAR 165.
[2017-02-11] MEDS ORDERED: CODE BLUE PARTICIPANT 1 EA MISC MC ONE (21:40)
[2017-02-11] MEDS ORDERED: EPINEPHrine PFS 0.1 MG/ML SYR IVP ONE ×3 (21:40→22:02)
--- NOTE | 2017-02-11 21:41 | NUR ---
CALLED COLD BLUE, ER TEAM AND ICU TEAM CAME, PATIENT'S SON AT BEDSIDE. CPR PERFORMED AND ACLS PERFORMED.
[2017-02-11] MEDS ORDERED: AMIODARONE 150 MG/3 ML VIAL IV ONE (22:02)
[2017-02-11] MEDS ORDERED: SODIUM BICARBONATE 8.4% PFS 50 MEQ/50 ML SYR IVP ONE ×2 (22:02)
[2017-02-11] MEDS ORDERED: MAGNESIUM SULFATE 50% 1000 MG/2 ML VIAL IV ONE (22:02)
[2017-02-11] MEDS ORDERED: ATROPINE 1 MG/10 ML SYR IVP ONE ×2 (22:02)
--- NOTE | 2017-02-11 22:05 | NUR ---
SECOND CODE BLUE CALLED. ICU TEAM AT BEDSIDE. RT AT BEDSIDE, ER TEAM CAME.
[2017-02-11] MEDS ORDERED: PANTOPRAZOLE 80 MG in NACL 0.9% 100 ML IV SCH (22:25)
[2017-02-11] MEDS ORDERED: OCTREOTIDE ACETATE 1.25 MG in NACL 0.9% 250 ML IV SCH (22:25)
--- NOTE | 2017-02-11 22:30 | NUR ---
PATIENT HEART RATE CAME BACK, PATIENT WAS TRANSFERRED TO ICU. REPORT GIVEN TO ICU NURSE.
--- NOTE | 2017-02-11 22:30 | NUR ---
PT TRANSFERRED TO ICU BED 2. PT NOTED TO HAVE NO PULSE NO BP. CODE BLUE CALLED.
--- NOTE | 2017-02-11 22:35 | NUR ---
SEE CODE BLUE SHEET.
[2017-02-11] MEDS ORDERED: AMIODARONE 450 MG in DEXTROSE 5% 250 ML IV SCH (22:45)
--- NOTE | 2017-02-11 22:45 | NUR ---
ROSC OBTAINED. REPORT OBTAINED FROM SINCERE COE MD AT BEDSIDE. WILL F/U WITH NEW ORDERS
--- NOTE | 2017-02-11 23:00 | NUR ---
OGT INSERTED. PLACEMENT CHECKED. PLACED ON SUCTION. COFFEE GROUND DRAINAGE NOTED
--- NOTE | 2017-02-11 23:18 | NUR ---
2114 CALLED BY RN TO CHECK ON PATIENT. PATIENT WAS PALE AND STATED HE COULD NOT BREATH. RN AND I SAT PATIENT UP. UNABLE TO GET A SATURATION PATIENTS FINGERS WERE TO COLD.CALLED DR LOVETT TO TELL HIM THAT PATIENT WAS SHORT OF BREATH. I SUGGESTED BIPAP TO HELP PATIENT BREATH. PLACED PATIENT ON BIPAP IPAP 12 EPAP 6. 100%.RR 14.
--- NOTE | 2017-02-11 23:22 | NUR ---
2119 RAPID RESPONSE CALLED AND ER TEAM CAME. PT STILL ON BIPAP. PT NOT RESPONDING TO VERBAL COMMANDS
[2017-02-11] MEDS ORDERED: AMIODARONE 450 MG/9 ML VIAL IV ONE (23:27)
[2017-02-11] MEDS ORDERED: EPINEPHrine 1:1000 1 MG in DEXTROSE 5% 250 ML IV SCH (23:30)
--- NOTE | 2017-02-11 23:43 | NUR ---
2141 checked patients heart rate and patient had no pulse. code blue called. cpr and acls drugs given. got heart rate back. patient was intubated with tube 7.5 at 25 lip. unable to hear bilateral breath sounds and pulled tube to 23lip.
--- NOTE | 2017-02-11 23:45 | NUR ---
2204 jesi roberson called again patients heart rate stopped cpr and acls drugs given. pts heart rate came back and was transfered to icu bed 2
[2017-02-11] MEDS ORDERED: NOREPINEPHRINE 4 MG/4 ML VIAL IV ONE (23:53)
[2017-02-11] MEDS: NOREPINEPHRINE 4 MG in DEXTROSE 5% 250 ML IV PRN (23:54)
--- NOTE | 2017-02-11 23:54 | NUR ---
LEVOPHED STARTED PER MD ORDER. WILL CONTINUE TO MONITOR.
[2017-02-12] VITALS (20 sets, daily range): BP systolic 0–140; BP diastolic 0–69
--- NOTE | 2017-02-12 00:05 | NUR ---
PT NOTED TO HAVE NO PULSE, NO BP. CODE BLUE BUTTON PRESSED.
--- NOTE | 2017-02-12 00:10 | NUR ---
RESPONDED TO CODE BLUE. CPR PERFORMED, ACLS DRUGS GIVEN
--- NOTE | 2017-02-12 00:10 | NUR ---
SEE CODE BLUE SHEET.
--- NOTE | 2017-02-12 00:11 | NUR ---
ROSC OBTAINED AT 0010. MD AT BEDSIDE. WILL F/U WITH NEW ORDERS.
--- NOTE | 2017-02-12 00:15 | NUR ---
PT NOTED TO HAVE COLD EXTREMITIES. RECTAL TEMP OBTAINED. HYPOTHERMIC. PER MD ORDER, PROTOCOL STARTED. WILL CONTINUE TO MONITOR TEMPERATURE.
--- NOTE | 2017-02-12 00:22 | NUR ---
PER MD ORDER, STARTED ON CONTINUOUS FLUID BOLUS UNTIL NOTIFIED BY MD TO STOP. WILL CONTINUE REPORTING PER BOLUS GIVEN. LEVOPHED INCREASED PER MD ORDER. MD AT BEDSIDE. WILL CONTINUE TO MONITOR.
--- NOTE | 2017-02-12 00:40 | NUR ---
PT NOTED TO HAVE NO PULSE, NO BP. CODE BLUE BUTTON PRESSED
--- NOTE | 2017-02-12 00:44 | NUR ---
SEE CODE BLUE SHEET.
--- NOTE | 2017-02-12 00:46 | NUR ---
ROSC OBTAINED. MD AT BEDSIDE. WILL F/U WITH NEW ORDERS.
--- NOTE | 2017-02-12 00:50 | NUR ---
[place]ILL[place] CATHETER PLACED. CLEAR URINE NOTED. WILL CONTINUE TO MONITOR.
--- NOTE | 2017-02-12 01:00 | NUR ---
ULTRASOUND AT BEDSIDE, MD AT BEDSIDE TO DO CENTRAL LINE PLACEMENT. CONSENT OBTAINED FROM SON. WITNESS BY ME. TIME OUT DONE. WILL CONTINUE TO MONITOR.
--- NOTE | 2017-02-12 02:00 | NUR ---
SPOKE TO DR. LOVETT REGARDING SECOND BAG OF POTASSIUM THAT WAS NOT HUNG ON MST. PER DR. LOVETT, OKAY TO NOT GIVE.
--- NOTE | 2017-02-12 02:00 | NUR ---
CHEST XRAY TAKEN. PER MD, OKAY TO USE. WILL CONTINUE TO MONITOR. MD AWARE OF BP AND PT'S BEING MAX ON LEVOPHED. ORDERS OBTAIN TO CONTINUE MONITORING BP.
[2017-02-12] MEDS ORDERED: NOREPINEPHRINE 4 MG/4 ML VIAL IV ONE (02:13)
--- NOTE | 2017-02-12 02:15 | NUR ---
MD MADE AWARE OF PT'S SLIGHT INCREASE IN TEMPERATURE. WILL CONTINUE PROTOCOL PER ORDER. WILL CONTINUE TO MONITOR.
[2017-02-12] MEDS: NOREPINEPHRINE 4 MG in DEXTROSE 5% 250 ML IV PRN (02:22)
[2017-02-12] MEDS ORDERED: PANTOPRAZOLE 40 MG INJ VIAL IVP ONE (02:38)
[2017-02-12] MEDS ORDERED: OCTREOTIDE ACETATE 1000 MCG/5 ML VIAL ONE (03:13)
--- NOTE | 2017-02-12 03:30 | NUR ---
AWARE CERTAIN IV MEDICATIONS WERE GIVEN LATE D/T PT'S CONDITION. OBTAIN OKAY TO CONTINUE GIVING Addendum: 02/12/17 at 0342 by Otis Tyler RN PROTONIX, AMIODARONE, SINDOSTATIN IV GIVEN LATE
[2017-02-12] MEDS: NACL 0.9% 1,000 ML IV SCH (03:39)
--- NOTE | 2017-02-12 04:30 | NUR ---
PT NOTED TO HAVE NO PULSE AND NO BP. CODE BLUE CALLED. SEE CODE BLUE SHEET.
[2017-02-12] MEDS ORDERED: SODIUM BICARBONATE 8.4% PFS 50 MEQ/50 ML SYR IVP ONE (04:31)
[2017-02-12] MEDS ORDERED: EPINEPHrine PFS 0.1 MG/ML SYR IVP ONE (04:31)
[2017-02-12] MEDS ORDERED: MAGNESIUM SULFATE 50% 1000 MG/2 ML VIAL IV ONE (04:31)
[2017-02-12] MEDS ORDERED: ATROPINE 1 MG/10 ML SYR IVP ONE (04:31)
--- NOTE | 2017-02-12 04:46 | NUR ---
DR. CARY AT BEDSIDE. CALLED TIME OF .
--- NOTE | 2017-02-12 04:48 | NUR ---
0420 ATTEMPTED ABG. UNABLE TO GET. RN AWARE
--- NOTE | 2017-02-12 04:49 | NUR ---
O430 CODE BLUE CALLED. CPR AND ACLS DRUGS GIVEN. PT [id number]
--- NOTE | 2017-02-12 04:55 | NUR ---
PATIENT'S SON JOHNNA AND PATIENT'S BROTHER LIO WAS INFORMED THROUGH TELEPHONE THAT THE PATIENT ALREADY AND PER SON JOHNNA, THEY DON'T WANT ANY AUTOPSY OF THE .
--- NOTE | 2017-02-12 04:59 | NUR ---
[facility] NOTIFIED OF PT'S . AWAITING CALL BACK. [facility] NOTIFIED OF PT'S . CLAIM NUMBER RECEIVED. SON NOTIFIED OF PT'S . AWAITING SON'S ARRIVAL.
--- NOTE | 2017-02-12 07:50 | NUR ---
PATIENT'S SON AND HIS EX- PRESENT IN THE UNIT, WHICH THEY STATES THAT THEY STILL WAITING FOR HIS BROTHER FROM [place] TO COME AND MAKE THE DECISION ABOUT THE MORTUARY.
--- NOTE | 2017-02-12 09:25 | NUR ---
NIYA GLORIA FROM [facility] CALLED IN FOR MORE INFORMATIONS. THE INFORMATION WAS GIVEN TO [facility] PER REQUESTED. PER NIYA GLORIA :THE CASE IS RELEASED TO FAMILY WITH THE SAME CASE # [id number]
--- NOTE | 2017-02-12 10:15 | NUR ---
FAXED REVIEW TO [facility] [phone] PHONE OPAL [phone]
--- NOTE | 2017-02-12 11:00 | NUR ---
PATIENT'S SON JOHNNA TREJO IS HERE AND SAID THAT THEY HAVE CALLED [facility] TO PEST CONTROL CHEMICAL TECHNICIAN THE BODY. RELEASE OF THE REMAINS FORM WAS SIGNED BY PT'S SON.
--- NOTE | 2017-02-12 11:20 | NUR ---
MICHELLE FROM [facility] CALLED IN AND WILL SEND SOME ONE TO RESIDENTIAL DOOR UNIT INSTALLER THE BODY WITHIN 1-2HR.
--- NOTE | 2017-02-12 12:40 | NUR ---
[facility] [employer]UILL CLEANING MACHINE OPERATOR IS HERE TO THERAPY AIDE THE BODY. NO FAMILY AROUND AT THIS TIME.
--- NOTE | 2017-02-12 13:00 | NUR ---
[facility] ALBERT LOVETT.
== END 2017-02-12 04:46 | disposition expired | DRG 380 ==
LOC: MED 19:14 → UNDOADMIN 22:00 → MTU 22:00 → MIC 02-11 22:25
PROVIDERS: ADMIT Family Medicine; ATTEND Family Medicine
PROC: 5A1945Z Respiratory Ventilation, 24-96 Consecutive Hours (ICD-10-PCS; 2017-02-07)
PROC: 02HV33Z Insertion of Infusion Device into Superior Vena Cava, Percutaneous Approach (ICD-10-PCS; 2017-02-07)
PROC: 0BH17EZ Insertion of Endotracheal Airway into Trachea, Via Natural or Artificial Opening (ICD-10-PCS; 2017-02-07)
PROC: 0DB78ZX Excision of Stomach, Pylorus, Via Natural or Artificial Opening Endoscopic, Diagnostic (ICD-10-PCS; 2017-02-11)
PROC: 0DJD8ZZ Inspection of Lower Intestinal Tract, Via Natural or Artificial Opening Endoscopic (ICD-10-PCS; 2017-02-11)
PROC: 0DB58ZX Excision of Esophagus, Via Natural or Artificial Opening Endoscopic, Diagnostic (ICD-10-PCS; 2017-02-11)
PROC: 0DB98ZX Excision of Duodenum, Via Natural or Artificial Opening Endoscopic, Diagnostic (ICD-10-PCS; principal; 2017-02-11 12:15)
PROC: 5A12012 Performance of Cardiac Output, Single, Manual (ICD-10-PCS; 2017-02-12)
PROC: 5A09357 Assistance with Respiratory Ventilation, Less than 24 Consecutive Hours, Continuous Positive Airway Pressure (ICD-10-PCS; 2017-02-12)
DX: K22.11 Ulcer of esophagus with bleeding (principal); N17.0 Acute kidney failure with tubular necrosis; D65 Disseminated intravascular coagulation [defibrination syndrome]; K25.0 Acute gastric ulcer with hemorrhage; J80 Acute respiratory distress syndrome; E87.1 Hypo-osmolality and hyponatremia; D62 Acute posthemorrhagic anemia; K26.0 Acute duodenal ulcer with hemorrhage; E87.8 Other disorders of electrolyte and fluid balance, not elsewhere classified; E83.42 Hypomagnesemia; E87.5 Hyperkalemia; K52.9 Noninfective gastroenteritis and colitis, unspecified; E86.0 Dehydration; F32.9 Major depressive disorder, single episode, unspecified; K44.9 Diaphragmatic hernia without obstruction or gangrene; Z90.49 Acquired absence of other specified parts of digestive tract; Z80.9 Family history of malignant neoplasm, unspecified; Z79.899 Other long term (current) drug therapy